=== PATIENT | female | born 1980 | race African-American/Black ===

== ENCOUNTER 2020-02-06 08:37 | Outpatient (REF) | payer OTHER, SELFPAY ==
[2020-02-06 09:27] LABS: MANUAL DIFF FLAG NO
--- NOTE | 2020-02-06 09:35 | ECG_ITS ---
Test Reason : SOB Blood Pressure : / mmHG Vent. Rate : 083 BPM Atrial Rate : 083 BPM P-R Int : 148 ms QRS Dur : 078 ms QT Int : 376 ms P-R-T Axes : 046 040 074 degrees QTc Int : 441 ms Normal sinus rhythm Possible Left atrial enlargement Nonspecific T wave abnormality Abnormal ECG When compared with ECG of 11-OCT-2018 11:05, No significant change was found Referred By: Ursula Gallagher Electronically Signed By:IVANA LINDA
[2020-02-06 09:40] LABS: Basophils Absolute Auto 0.1 X10*3/uL (0.0-0.2); Basophils Percent Auto 1.2 % (0-2); Eosinophils Percent Auto 0.6 % (0-4); Hematocrit 37.8 % (37-47); Hemoglobin 12.2 g/dl (12.0-16.0); Imm Gran Abs Auto 0.02 X10*3/uL (0.00-0.03); Imm Gran Pct Auto 0.4 % (0.0-0.4); Lymphocytes Absolute Auto 2.1 X10*3/uL (1.2-4.9); Lymphocytes Percent Auto 42.8 % (20-40); Mean Corpuscular HGB Conc 32.3 g/dl (31.0-35.0); Mean Corpuscular Hemoglobin 25.9 pg (27.0-33.0); Mean Corpuscular Volume 80.3 fL (80-98); Mean Platelet Volume 9.8 fL (9.4-12.3); Monocytes Absolute Auto 0.5 X10*3/uL (0.1-1.2); Monocytes Percent Auto 10.5 % (2-11); Neutrophils Absolute Auto 2.2 X10*3/uL (2.0-8.3); Neutrophils Percent Auto 44.5 % (45-73); Platelet Count 330 X10*3/uL (160-400); Red Blood Count 4.71 X10*6/uL (4.20-5.50); Red Cell Distribution Width 14.9 % (11.0-16.0); White Blood Count 4.8 X10*3/uL (4.8-10.8)
--- NOTE | 2020-02-06 09:55 | XR_ITS ---
EXAMINATION: CHEST X-RAY CLINICAL INFORMATION: Shortness of breath COMPARISON: Previous chest x-ray from 2019 TECHNIQUE: Two-view chest FINDINGS: The cardiac and mediastinal contours are stable. There is increased attenuation seen diffusely throughout the lungs. This may be artifactual due to light film technique and patient body habitus. No lobar consolidation/pneumonia is seen. There is no pleural effusion or pneumothorax. Bony structures are unremarkable. IMPRESSION: Increased attenuation in the lungs, question artifactual due to light film technique and patient body habitus. No evidence of lobar pneumonia.
[2020-02-06 09:59] LABS: Alanine Aminotransferase 22 U/L (0-31); Albumin Level 4.3 g/dL (3.5-5.0); Alkaline Phosphatase 64 U/L (39-117); Anion Gap 10 (12-20); Aspartate Amino Transferase 17 U/L (5-31); Bilirubin Total 0.4 mg/dL (0.0-1.0); Blood Urea Nitrogen 8 mg/dL (9-16); C Reactive Protein 0.68 mg/dL (< or = 0.50); Calcium 9.4 mg/dL (8.4-10.2); Carbon Dioxide 26 mmol/L (22-29); Chloride 105 mmol/L (96-108); Cholesterol 183 mg/dL; Estimated Glomerular Filt Rate > 60; Glucose Random 149 mg/dL (60-115); HDL Cholesterol 50 mg/dL; Iron 78 mcg/dL (30-160); LDL Cholesterol Calculated 118 mg/dl; Percent Iron Saturation 18 % (15-50); Potassium 4.4 mmol/l (3.3-5.1); Sodium 137 mmol/L (135-145); Total Iron Binding Capacity 439 mcg/dL (228-428); Total Protein 7.3 g/dL (6.5-8.0); Triglycerides 77 mg/dL; Unsaturated Iron Binding 361 ug/dL
[2020-02-06 10:13] LABS: Estimated Average Glucose 169 mg/dL; Hemoglobin A1c % 7.5 %
[2020-02-06 10:20] LABS: Ferritin 13 ng/mL (10-122); Vitamin D 25-OH Total 13.7 ng/mL (>30)
[2020-02-06 11:08] LABS: Folate 17.4 ng/mL (> or = 4.0); Vitamin B12 693 pg/mL (200-900)
[2020-02-06 12:19] LABS: TSH reflex Free T4 0.19 mIU/mL (0.32-4.0)
[2020-02-06 12:53] LABS: Free T4 (Free Thyroxine) 1.05 ng/dL (0.71-1.85)
[2020-02-07 12:47] LABS: Insulin Level Total 15.9 uIU/mL
[2020-02-08 02:11] LABS: Calcium (PTHI) 9.4 mg/dL (8.6-10.2); PTHI 51 pg/mL (14-64)
[2020-02-11 12:46] LABS: Vitamin B1 <6 nmol/L (8-30)
[2020-02-11 22:21] LABS: Vitamin A 53 mcg/dL (38-98)
[2020-02-13 16:07] LABS: Zinc 66 mcg/dL (60-130)
== END 2020-02-06 08:38 | disposition home or self-care (01) ==
LOC: HO.LAB 08:37
PROVIDERS: PCP Nurse Practitioner Adult Health; Visit Provider Physician Assistant
DX: R06.02 Shortness of breath (principal)
CPT/HCPCS: 36415; 71046; 80053; 80061; 82306; 82607; 82728; 82746; 83036; 83525; 83540; 83970; 84425; 84439; 84443; 84590; 84630; 85025; 86140; 93005; 93010

== ENCOUNTER → 2020-02-13 08:51 | Outpatient (BNVA) | payer OTHER, SELFPAY | PROVIDERS: PCP Nurse Practitioner Adult Health; Referring Provider Nurse Practitioner Adult Health; Visit Provider Surgery | DX: Z11.0 Encounter for screening for intestinal infectious diseases (principal) | CPT/HCPCS: 99211 ==

== ENCOUNTER 2020-02-13 09:35 | Outpatient (REF) | payer OTHER, SELFPAY ==
[2020-02-19 14:27] LABS: H Pylori Breath Test NOT DETECTED (NOT DETECTED)
== END 2020-02-13 09:36 | disposition home or self-care (01) ==
LOC: HO.LNP 09:35
PROVIDERS: Visit Provider Surgery
DX: Z01.818 Encounter for other preprocedural examination (principal)
CPT/HCPCS: 83013

== ENCOUNTER → 2020-02-21 12:49 | Outpatient (BNVA) | payer OTHER, SELFPAY | PROVIDERS: PCP Nurse Practitioner Adult Health; Visit Provider Physician Assistant | DX: E66.01 Morbid (severe) obesity due to excess calories (principal); Z68.42 Body mass index [BMI] 45.0-49.9, adult | CPT/HCPCS: 99214 ==

== ENCOUNTER → 2020-03-06 08:21 | Outpatient (BNVA) | payer OTHER, SELFPAY | PROVIDERS: PCP Nurse Practitioner Adult Health; Visit Provider Dietitian, Registered | DX: Z76.89 Persons encountering health services in other specified circumstances (principal) ==

== ENCOUNTER → 2020-09-25 11:37 | Outpatient (BNVA) | payer OTHER, SELFPAY | PROVIDERS: PCP Nurse Practitioner Adult Health; Visit Provider Surgery | DX: E66.01 Morbid (severe) obesity due to excess calories (principal); Z68.42 Body mass index [BMI] 45.0-49.9, adult | CPT/HCPCS: 99212 ==

== ENCOUNTER → 2020-10-12 08:11 | Outpatient (BNVA) | payer OTHER, SELFPAY | PROVIDERS: PCP Nurse Practitioner Adult Health; Visit Provider Dietitian, Registered | DX: E66.9 Obesity, unspecified (principal); Z68.42 Body mass index [BMI] 45.0-49.9, adult | CPT/HCPCS: 97803 ==

== ENCOUNTER → 2020-11-06 08:49 | Outpatient (BNVA) | payer OTHER, SELFPAY | PROVIDERS: PCP Nurse Practitioner Adult Health; Visit Provider Dietitian, Registered ==

== ENCOUNTER → 2020-12-16 08:13 | Outpatient (BNVA) | payer OTHER, SELFPAY | PROVIDERS: PCP Nurse Practitioner Adult Health; Visit Provider Dietitian, Registered ==